=== PATIENT | male | born 1965 | race Caucasian/White ===

== ENCOUNTER → 2017-08-20 | Outpatient (CLI) | payer SELFPAY ==
--- NOTE | 2017-08-20 21:16 | CONS ---
CONSULTATION DATE OF SERVICE: 08/20/2017. A 52-year-old gentleman who has [facility] for obstructive sleep apnea-hypopnea syndrome. HISTORY OF PRESENT ILLNESS AND SLEEP-WAKE EVALUATION: Patient's usual sleep schedule from 10:00 p.m. to 5:00 a.m. on working days and from around 10:00 p.m. to 6:00 a.m. on weekend. Usually no problem with falling asleep. No TV in bedroom. He usually sleeps on the side position. According to his , he snores, has episodes of stopped breathing during the sleep. Patient wakes up from sleep 3 times with nocturia, dry mouth, heartburn, gasping for air, restless legs, sweating. Positive history of sleep talking. Positive history of seeing dreams right after closing his eyes while he goes to bed. Positive-possible hypnagogic hallucinations. During the day, the patient wakes up tired, falling asleep during the day, has irritability. Alto Sleepiness Scale is in extremely high range of 19. Positive history of seeing dreams during naps. PAST MEDICAL HISTORY: Positive for hypertension, migraine. Often, patient has episodes of migraine in the morning after awakenings. PAST SURGICAL HISTORY: Right knee surgery. SOCIAL HISTORY: Negative for smoking or using alcohol. FAMILY HISTORY: Hypertension, heart problems, hyperlipidemia, arthritis, sinus headache, sleep apnea. REVIEW OF SYSTEMS: Multiple awakenings from sleep, episodes of migraines in the morning, significant sleepiness during the day. PHYSICAL EXAMINATION: GENERAL gentleman without distress. VITAL SIGNS BP 132/80, HR 85, RR 16, height 5 feet 4-3/4 inches, weight 233.4, BMI 39.9, temperature 98.1, oxygen saturation at room air 95%. HEVÍCTOR PERRLA, EOMI, evaluation of oropharynx showed tongue protrudes midline, extremely low position of soft palate. Neck Supple, no JVD. Thyroid is not palpable. Wide neck, 18 inches in circumference. LUNGS Clear to percussion and to auscultation. Good air exchange. No wheezing or rhonchi. HEART S1, S2 regular. No murmurs, gallops, or rubs. ABDOMEN Obese, soft and nontender. Bowel sounds are present. No organomegaly appreciated. EXTREMITIES No clubbing or cyanosis. FORMULATION CHEMIST Awake, alert, and oriented X3. Cranial nerves 2 to 7 intact. There is no fasciculation or atrophy noted. No focal deficits observed. IMPRESSION: 1. Snoring, witnessed episodes of stopped breathing during the sleep, low position of soft palate awakenings from sleep, daytime sleepiness, obstructive sleep apnea- hypopnea syndrome. 2. Significant excessive daytime sleepiness. Alto Sleepiness Scale is in a very high range of 19. 3. Positive history of hypnagogic hallucinations and dreaming during the naps. Differential diagnosis should include narcolepsy. 4. Obesity, BMI 39.9. 5. Migraines. Often, episodes of migraines happened in the morning after awakenings. 6. Hypertension. 7. Status post right knee surgery. PLAN: 1. Polysomnography for evaluation of patient's breathing during sleep. 2. CPAP/BiPAP titration if sleep study confirms obstructive sleep apnea-hypopnea syndrome. 3. Preferable position during sleep on the side. 4. No driving if patient feels any sleepiness. Patient is aware of civil and criminal liability for unsafe driving. 5. I will see patient for follow up visit to explain results of testing and following plan. Thank you very much for referring this patient for consultation. Sincerely, Kenyon Solo MD, PhD, FAASM Diplomat of [employer] [facility] [employer] Consult[facility] [place] MMODL / BRUCEN: [id number] /
== END | disposition home or self-care (01) ==
LOC: SLEEP 13:47
PROVIDERS: ATTEND Internal Medicine
DX: G47.33 Obstructive sleep apnea (adult) (pediatric) (principal); E66.9 Obesity, unspecified; G43.909 Migraine, unspecified, not intractable, without status migrainosus; I10 Essential (primary) hypertension; Z98.890 Other specified postprocedural states; Z68.39 Body mass index [BMI] 39.0-39.9, adult
CPT/HCPCS: 99211

== ENCOUNTER → 2019-03-24 | Outpatient (CLI) | payer BC ==
--- NOTE | 2019-03-24 11:42 | ECHOS ---
STRESS ECHOCARDIOGRAM INDICATIONS: Chest pain. MEDICATIONS: Lisinopril BASELINE HEART RATE: 72 BASELINE BLOOD PRESSURE: 123/79 MAXIMUM HEART RATE: 146 MAXIMUM BLOOD PRESSURE: 182/81 85% MPHR: 140 100% MPHR: 165 METS: 9.1 MAXIMUM STAGE REACHED: III TOTAL EXERCISE TIME: 7:35 CLINICAL INFORMATION: Baseline EKG revealed normal sinus rhythm without significant ST-T changes. Patient walked for 7 minutes 35 seconds, achieved a maximal heart rate of 146 beats per minute which is more than 85% of predicted maximal. He developed fatigue and shortness of breath but did not have any angina or arrhythmia. EKG did not reveal any ST-segment changes to indicate ischemia. By EKG criteria, this is a negative stress test with limited exercise capacity. Baseline echo images revealed normal wall motion and wall thickening of all segments. At peak exercise there was good augmentation of left ventricular wall motion and wall thickening of all segments suggesting that there is no evidence of stress-induced ischemia on this study. IMPRESSION: 1. Fair exercise capacity with a negative stress test by EKG criteria. 2. Normal stress echocardiogram. MMODL / IJN: [id number] /
== END | disposition home or self-care (01) ==
LOC: RADNMMAIN 09:45
PROVIDERS: ATTEND Internal Medicine Geriatric Medicine
DX: R07.9 Chest pain, unspecified (principal)
CPT/HCPCS: 93351

== ENCOUNTER → 2020-03-27 | Outpatient (CLI) | payer BC ==
--- NOTE | 2020-03-27 12:53 | XR ---
EXAMINATION TYPE: XR chest 2V DATE OF EXAM: 03/27/2020 COMPARISON: 03/11/2019 INDICATION: Chest pain TECHNIQUE: Frontal and lateral views of the chest are obtained. FINDINGS: The heart size is normal. The pulmonary vasculature is normal. The lungs are clear. IMPRESSION: 1. No acute pulmonary process.
--- NOTE | 2020-03-27 18:06 | MR ---
EXAMINATION TYPE: MR cervical spine wo con DATE OF EXAM: 03/27/2020 COMPARISON: None HISTORY: Neck pain, Numbness/weakness BUE CONTRAST: Performed utilizing 0 mL intravenous Gadavist gadolinium contrast. TECHNIQUE: Multiplanar multiecho imaging on a 3.0 Farzana magnet is performed through the cervical spin e. FINDINGS: The craniovertebral junction is normal. Vertebral body alignment is normal. There is dif fuse disc desiccation throughout the cervical spine. Disc space narrowing is present C2-3 through C6- 7. C7-T1: Minimal disc bulge is present with anterior thecal sac flattening. No AP spinal canal stenosi s or cord contact is evident. Mild foraminal narrowing is present greater on the right. C6-7: Broad-based disc bulge has moderate anterior thecal sac compression. This has anterior cord con tact. No cord deformity is noted. No spinal canal stenosis is present. Uncovertebral joint hypertroph y is contributing to moderate bilateral foraminal narrowing. C5-6: There is a large broad-based disc bulge with moderate anterior thecal sac compression. This has cord contact. Subtle cord deformity is not excluded. No AP spinal canal stenosis is present. Moderat e bilateral foraminal stenosis is present. C4-5: Large disc bulge is present. This is greater into the right paracentral region. Cord contact is not identified although some subtle right anterior cord deformity may be present mild to moderate bi lateral foraminal stenosis is present. C3-4: Broad-based disc bulge is present. This greater in the central region with some protrusion. No AP spinal canal stenosis present. Cord contact is present.. C2-3: Broad-based disc bulge is present slightly greater to the left paracentral region. No AP spinal canal stenosis present. Cord contact is not evident. IMPRESSIONS: 1. Multilevel disc bulges with anterior thecal sac contact and cord contact extending from C3-4 throu gh C6-7. Milder disc bulging is present C7-T1. 2. Disc bulge with cord contact C5-6 may have subtle cord deformity and C6-7 without cord deformity. 3. Multilevel foraminal stenosis due to uncovertebral joint hypertrophy.
== END | disposition home or self-care (01) ==
LOC: RADMRIMAIN 10:26
PROVIDERS: ATTEND Nurse Practitioner Gerontology
DX: M48.02 Spinal stenosis, cervical region (principal); M50.81 Other cervical disc disorders, high cervical region; R07.9 Chest pain, unspecified
CPT/HCPCS: 71046; 72141

== ENCOUNTER → 2020-10-18 | Outpatient (CLI) | payer BC ==
--- NOTE | 2020-10-19 07:20 | XR ---
EXAMINATION TYPE: XR lumbar spine 2 or 3V DATE OF EXAM: 10/18/2020 CLINICAL HISTORY: pain TECHNIQUE: Three views of the lumbar spine are submitted. COMPARISON: None. FINDINGS: There are 5 lumbar type vertebral bodies identified. The lumbar spine shows satisfactory alignment w ithout evidence of acute fracture or dislocation. Vertebral body heights are within normal limits. Severe multilevel degenerative disc disease and spondylosis. The overlying soft tissue appears unrem arkable. IMPRESSION: No acute fracture or dislocation is seen in the lumbar spine. ICD 10 NO FRACTURE, INITIAL EVALUATION
== END | disposition home or self-care (01) ==
LOC: RADXRMAIN 17:23
PROVIDERS: ATTEND Internal Medicine Geriatric Medicine
DX: M54.5 Low back pain (principal)
CPT/HCPCS: 72100